=== PATIENT | male | born 1965 | race Caucasian/White ===

== ENCOUNTER 2021-10-05 01:47 | Day surgery (SDC) | payer OTHER, SELFPAY ==
[2021-09-25 09:38] VITALS: BMI 26.6
[2021-10-05 12:49] VITALS: BP 116/81; PULSE 89; RESP 16; TEMP 36.5; O2SAT 97
[2021-10-05] MEDS: LACTATED RINGERS 1,000 ML 150 ML IV CONT (13:00)
--- NOTE | 2021-10-05 13:02 | WPDANESEPPF ---
Anes - Initial Pre Proc Eval Procedure: Operation Date: 10/05/21 13:30 Proposed Procedures p Screening Colonoscopy - Jaspal Lancaster MD Date/Time: 10/05/21 13:02 Surgeon: Jaspal Lancaster MD Pre Op Diagnosis: hx of colon polyps, neoplasm screening Patient Data Age: 56 Gender: M Height: 1.8 m Weight: 87.4 kg Last Vital Signs Temp 36.5 C 10/05/21 12:49 Pulse 89 10/05/21 12:49 Resp 16 10/05/21 12:49 BP 116/81 10/05/21 12:49 Pulse Ox 97 10/05/21 12:49 O2 Del Method Room Air 10/05/21 12:49 Allergies Allergy/AdvReac Type Severity Reaction Status Date / Time KARL --USED AT DENTIST Allergy Severe PROLONGED Uncoded 10/05/21 12:47 FACIAL PARALYSIS, DROOPING, ETC PET ALLERGENS--CAT, DOG Allergy Mild RESP Uncoded 10/05/21 12:47 DISTRESSS TYLENOL COLD MED--??SPECIFIC Allergy Mild HIVES, RASH Uncoded 10/05/21 12:47 DRUG Home Medications Medication Instructions Recorded Confirmed Type aspirin 325 mg tablet 325 mg PO DAILY 08/06/19 10/05/21 History cetirizine 10 mg tablet (Zyrtec) 10 mg PO DAILY 08/06/19 10/05/21 History nihbbnuz-its-qmzdc acid 300 1 tablet PO DAILY 06/21/20 10/05/21 History mcg-lycopene 600 mcg-lutein 300 mcg tablet (Men 50 Plus Multivitamin) finasteride 5 mg tablet See Rx Instructions .Route 11/30/20 10/05/21 Rx .COMPLEX #90 tabs ascorbate calcium (vitamin C) 500 500 mg PO DAILY 12/13/20 10/05/21 History mg tablet Patient hx anesthesia problems: none Family hx anesthesia problems: none Results Review: All pre-operative results and documents have been reviewed as part of the pre-operative evaluation. [facility] Past Medical History Medical History (Updated 10/05/21 @ 13:14 by Jaspal Lancaster MD) Hypertension Surgical History Surgical History H/O colonoscopy (~04/2018) H/O hernia repair Family History Family History Mother Hypertension Diabetes mellitus Social History Social History Smoking status: Never smoker Alcohol intake: current Alcohol use details: rarely Substance use: never Living arrangements: with family Spiritual care concerns: No Anes - Eval Final PreProcedure Day of Procedure 10/05/21 13:02 Patient weight: overweight Heart: regular rate and rhythm Lungs: clear to auscultation Airway: Mallampati scale class II Neurological: alert and oriented Last oral intake: >/= 8 hours ASA classification: II Emergent: no Anesthetic plan: proceed Anesthesia type and monitoring: general GIVS and standard monitoring Results Review: All pre-operative results and documents have been reviewed as part of the pre-operative evaluation. Informed Consent: The patient's anesthetic plan and its attendant risks and benefits were discussed with the patient/family/POA. Questions were solicited and answers provided to the satisfaction of the patient/family/POA.
--- NOTE | 2021-10-05 13:12 | PM.IMHP ---
H&P: HPI History of Present Illness Date/Time: 10/05/21 13:12 Chief Complaint: History of colon polyps. Narrative: This is a 56-year-old white male patient that comes for follow-up colonoscopy. Patient has a prior history of colon polyps 3-4 years ago. Patient's current weight appetite bowel movements are normal. He denies abdominal pain. Patient has had no bleeding. He presents for follow-up neoplasia screening. Review of Systems Review of Systems: Review of systems noncontributory. [facility] Past Medical History Medical History (Updated 10/05/21 @ 13:14 by Jaspal Lancaster MD) Hypertension Surgical History Surgical History H/O colonoscopy (~04/2018) H/O hernia repair Family History Family History Mother Hypertension Diabetes mellitus Social History Social History Smoking status: Never smoker Alcohol intake: current Alcohol use details: rarely Substance use: never Living arrangements: with family Spiritual care concerns: No Meds Home Medications and Allergies Home Medications Medication Instructions Recorded Confirmed Type aspirin 325 mg tablet 325 mg PO DAILY 08/06/19 10/05/21 History cetirizine 10 mg tablet (Zyrtec) 10 mg PO DAILY 08/06/19 10/05/21 History swocwyzb-aiv-pdbpc acid 300 1 tablet PO DAILY 06/21/20 10/05/21 History mcg-lycopene 600 mcg-lutein 300 mcg tablet (Men 50 Plus Multivitamin) finasteride 5 mg tablet See Rx Instructions .Route 11/30/20 10/05/21 Rx .COMPLEX #90 tabs ascorbate calcium (vitamin C) 500 500 mg PO DAILY 12/13/20 10/05/21 History mg tablet sodium sul 1.479 gram-potas ch See Rx Instructions PO PER PKG DIR 09/17/21 10/05/21 Rx 0.188 gram-magnes sul 0.225 gram #24 tabs tablet (Sutab) Allergies Allergy/AdvReac Type Severity Reaction Status Date / Time KARL --USED AT DENTIST Allergy Severe PROLONGED Uncoded 10/05/21 12:47 FACIAL PARALYSIS, DROOPING, ETC PET ALLERGENS--CAT, DOG Allergy Mild RESP Uncoded 10/05/21 12:47 DISTRESSS TYLENOL COLD MED--??SPECIFIC Allergy Mild HIVES, RASH Uncoded 10/05/21 12:47 DRUG Vital Signs Vital Signs - 24 hr 10/05/21 12:49 Temperature 97.7 F Pulse Rate 89 Respiratory Rate 16 Blood Pressure 116/81 Pulse Oximetry 97 Oxygen Delivery Room Air Exam Narrative: Physical exam reveals patient to be alert. Vital signs stable. HEENT exam is unremarkable. Patient is anicteric. Lungs are clear to auscultation and percussion. Heart is without murmur or extra sounds. Abdominal exam bowel sounds are present soft nontender with no hepatosplenomegaly. Digital external rectal exam is normal. Assessment and Plan Assessment and plan (1) History of colon polyps: Code(s): Z86.010 - Personal history of colonic polyps Status: Acute Assessment and Plan: Patient has a prior history of benign colon polyps. Plan is for surveillance colonoscopy today. Continue follow-up at 5 year intervals is advised. Further recommendations may be given after endoscopy.
[2021-10-05 13:52] VITALS: BP 100/71; PULSE 78; RESP 24; O2SAT 95
[2021-10-05 14:02] VITALS: BP 116/81; PULSE 79; RESP 20; O2SAT 96
[2021-10-05 14:12] VITALS: BP 109/83; PULSE 80; RESP 18; O2SAT 98
== END 2021-10-05 14:23 | disposition home or self-care (01) ==
PROVIDERS: PCP Family Medicine; Visit Provider Internal Medicine Gastroenterology
PROC: 0DJD8ZZ Inspection of Lower Intestinal Tract, Via Natural or Artificial Opening Endoscopic (ICD-10-PCS; CPT 45378; principal; 2021-10-05 13:30)
DX: Z12.11 Encounter for screening for malignant neoplasm of colon (principal); Z86.010 Personal history of colon polyps; K64.8 Other hemorrhoids; I10 Essential (primary) hypertension; Z79.82 Long term (current) use of aspirin
CPT/HCPCS: 45378; J2704; J7120

== ENCOUNTER → 2022-07-05 10:36 | Outpatient (CLI) | payer OTHER, SELFPAY ==
--- NOTE | ~2022-07-05 | XR_ITS ---
Left Shoulder Technique: AP and axillary views were obtained. Clinical History: Pain Findings: No fracture or dislocation is seen. Osseous alignment is anatomic. The glenohumeral and acr omioclavicular joint spaces are preserved. Soft tissues are unremarkable. Impression: Unremarkable left shoulder radiographs. Reviewed, dictated and finalized at [facility]. Impression: Unremarkable left shoulder radiographs.
== END ==
PROVIDERS: PCP Emergency Medicine; Visit Provider Emergency Medicine
DX: M25.512 Pain in left shoulder (principal)
CPT/HCPCS: 73030

== ENCOUNTER 2022-09-20 08:00 | Outpatient (RCR) | payer OTHER, SELFPAY ==
[2022-07-19 08:02] VITALS: BP_SYST 95
--- NOTE | 2022-07-19 14:04 | PTOPEVAL1 ---
Assessment and note entered by Wily Renteria, PT, DPT Evaluation Information Assessment Status Evaluation Diagnosis L shoulder pain Onset 2 months Subjective Information Pt states he is having L shoulder pain, he had a pain similar to this a few years ago, last time it went away on its own. X-Rays are negative for arthritis. Pt states his shoulder is more painful this time than last time, he states his ROM is really limited and he gets the pain anytime he reaches for things. He states with his arm resting by his side he does not have much pain but when he reaches his arm he will get a sharp pain that last for about 20-30s. Reported Pain Level Pain Score 1: Self Report Assessment PT Clinical Summary Renan presents to therapy today for his initial evaluation with a diagnosis of L shoulder pain. Today he demonstrates decreased active and passive ROM on the L shoulder that is nearly equal, indicating adhesive capsulitis. Today he demonstrates active shoulder flexion to 108 deg and abduction to 65 deg, passive flexion to 116deg and abduction to 95deg. There is a hard end feel at the end ROM. It was recommended that he follow up with ortho as well as his PCP to see if there is an anti inflammatory that could help with his prognosis. Skilled physical therapy services are indicated to improve ROM, manage pain, and to improve functional mobility. Plan of Care Interventions Electrical Stimulation,Hot Pack/Cold Pack,Manual Therapy,Neuro Re-education,Patient/Caregiver Educati,Therapeutic Activities,Therapeutic Exercise PT Services Indicated Yes Treatment Frequency and 2x/wk for 4 wks Duration These treatments will address the objective and functional deficits as defined above. The patient will be advanced safely and appropriately in order for the patient to progress towards his/her prior level of function. Additional exercises will be introduced and as well as a comprehensive home exercise program upon discharge, if needed, ?to ensure carryover of functional gains achieved in the clinic. This treatment plan has been reviewed and agreement upon by the patient.
[2022-08-21 08:00] VITALS: BP_SYST 115
--- NOTE | 2022-08-21 08:49 | PTOPPROG ---
Assessment and note entered by Wily Renteria, PT, DPT Evaluation Information Assessment Status Progress Diagnosis L shoulder pain Onset 2 months Subjective Information Pt states he feels like overall therapy is working . He states he feels constant improvement but that it is just slow. He reports he is unsure if he will need another intervention or not. He reports no large limitations, he just has to be cautions of moving into certain positions. He reports less positional aggravation, now happening 1-2x/wk vs 1-2x/day. Pt reports 70-75% improvement in overall symptoms. Assessment PT Clinical Summary Renan presents to therapy today for his progress report following 8 visits of skilled therapy to treat his L shoulder pain. Today he has increased his active shoulder flexion from 108 deg to 140 deg, and abduction from 65 deg to 104 deg. He has improved his active and passive ROM significant but is still lacking motion, including rotation from his uninvolved side. He reports good compliance with his HEP and is progressing well towards his goals. Continuation of skilled therapy services are indicated to continue to progress ROM, mobility, and to return to PLOF. Plan of Care Interventions Electrical Stimulation,Hot Pack/Cold Pack,Manual Therapy,Neuro Re-education,Patient/Caregiver Educati,Therapeutic Activities,Therapeutic Exercise PT Services Indicated Yes Treatment Frequency and 1-2x/wk for 4 wks Duration These treatments will address the objective and functional deficits as defined above. The patient will be advanced safely and appropriately in order for the patient to progress towards his/her prior level of function. Additional exercises will be introduced and as well as a comprehensive home exercise program upon discharge, if needed, ?to ensure carryover of functional gains achieved in the clinic. This treatment plan has been reviewed and agreement upon by the patient.
[2022-09-20 08:02] VITALS: BP_SYST 130
--- NOTE | 2022-09-20 08:55 | PTOPPROG ---
Assessment and note entered by Wily Renteria, PT, DPT Evaluation Information Assessment Status Progress Diagnosis L shoulder pain Onset 2 months Subjective Information Pt states he feels like he continues to make slow improvement with therapy. He states his function has improved enough to where at most times he does not notice him limitations. Pt reports an 85% return to PLOF. Assessment PT Clinical Summary Renan presents to therapy today for his progress report following 12 visits of skilled therapy to treat his L shoulder pain. Today he has demonstrate active shoulder flexion to 140 deg, and abduction to 120 deg. He has improved his active and passive ROM but is still lacking motion , especially int rot rotation from his uninvolved side. Continuation of skilled therapy services are indicated to continue to progress ROM, mobility, and to return to PLOF. Plan of Care Interventions Electrical Stimulation,Hot Pack/Cold Pack,Manual Therapy,Neuro Re-education,Patient/Caregiver Educati,Therapeutic Activities,Therapeutic Exercise PT Services Indicated Yes Treatment Frequency and in one month Duration These treatments will address the objective and functional deficits as defined above. The patient will be advanced safely and appropriately in order for the patient to progress towards his/her prior level of function. Additional exercises will be introduced and as well as a comprehensive home exercise program upon discharge, if needed, ?to ensure carryover of functional gains achieved in the clinic. This treatment plan has been reviewed and agreement upon by the patient.
--- NOTE | 2022-10-11 09:51 | PCPTNOTE ---
This treatment is being continued on visit number [id number]. Please see documentation on both accounts to view progress. Completed interventions, outcomes, and problems have been marked as Inactive to facilitate the copying of the Care plan routine for recurring accounts.
== END 2022-10-10 08:48 | disposition still patient (30) ==
LOC: ANHGOSHPT 08:00
PROVIDERS: PCP Emergency Medicine; Visit Provider Nurse Practitioner Family
DX: M25.512 Pain in left shoulder (principal)
CPT/HCPCS: 97110; 97112; 97140; 97161; 97530

== ENCOUNTER 2022-10-18 08:00 | Outpatient (RCR) | payer OTHER, SELFPAY ==
--- NOTE | 2022-10-11 09:50 | PCPTNOTE ---
The treatment documented on this account is a continuation of the treatment documented on visit number [id number]. Please see documentation on both accounts to view progress. The Plan of Care has been transitioned and updated within the new V#. I have addressed and agree with the discipline specific Problems, Interventions, and Goals for the current certification period. Completed interventions, outcomes, and problems have been marked as Inactive to facilitate the copying of the Care plan routine for recurring accounts.
--- NOTE | 2022-10-18 08:39 | PTOPDC ---
Assessment and note entered by Wily Renteria, PT, DPT Evaluation Information Assessment Status Discharge Diagnosis L shoulder pain Subjective Information Pt states his shoulder is good overall but he can at times still tell that he has some limitations. He states once in the last month reached for something and get a pretty sharp pain for the last for 15s. He states he is not really affected day to day. Reported Pain Level Pain Score 1: Self Report Assessment PT Clinical Summary Renan presents to therapy today for his progress report following 13 visits of skilled therapy to treat her L shoulder pain. Today he demonstrates shoulder strength that is grossly 5/5 and equal bilaterally. His active shoulder ROM measurements are within 10 degs of his uninvolved side. Functional internal rotation continues to be the most limited motion. He has met or progressed well towards all of his therapy goals and will be discharged from skilled services at this time. Plan of Care PT Services Indicated No
== END 2022-10-18 09:19 | disposition home or self-care (01) ==
LOC: ANHGOSHPT 08:00
PROVIDERS: PCP Emergency Medicine; Visit Provider Nurse Practitioner Family
DX: M25.512 Pain in left shoulder (principal)
CPT/HCPCS: 97110

== ENCOUNTER 2023-11-06 09:53 | Outpatient (CLI) | payer OTHER, SELFPAY ==
[2023-11-06 19:37] LABS: Basophils Absolute Auto 0.1 K/mm3 (0.0-0.1); Basophils Percent Auto 0.9 % (0.2-1.2); Eosinophils Absolute Auto 0.2 K/mm3 (0-0.3); Eosinophils Percent Auto 3.1 % (0-4.4); Hematocrit 49.2 % (42.0-52.0); Hemoglobin 16.6 g/dL (14.0-18.0); Immature Granulocyte Absolute 0.03 K/mm3 (0.00-0.031); Immature Granulocyte Percent A 0.4 % (0-0.5); Lymphocytes Absolute Auto 1.95 K/mm3 (0.9-3.2); Lymphocytes Percent Auto 28.5 % (18.3-44.2); Mean Corpuscular HGB Conc 33.7 g/dl (32-36); Mean Corpuscular Volume 91.8 fl (80-100); Mean Platelet Volume 10.6 fl (7.4-10.4); Monocytes Absolute Auto 0.6 K/mm3 (0.1-0.6); Monocytes Percent Auto 9.2 % (2.6-8.5); Neutrophils Percent Auto 57.9 % (45.5-73.1); Platelet Count Result 403 k/mm3 (150-375); Red Blood Count 5.36 M/mm3 (4.6-6.20); Red Cell Distribution Width 13.9 % (11.5-14.5); White Blood Count 6.8 K/mm3 (4.5-10.0)
[2023-11-06 19:45] LABS: Vitamin D 25 Hydroxy 46.1 ng/mL
[2023-11-06 19:52] LABS: Alanine Aminotransferase 63 U/L (6-50); Albumin Level 4.5 g/dL (3.5-5.1); Alkaline Phosphatase 54 U/L (38-126); Anion Gap 8 mmol/L (4-12); Aspartate Amino Transferase 60 U/L (17-59); Bilirubin,Total 0.8 mg/dL (0.2-1.3); Blood Urea Nitrogen 15 mg/dL (9-20); Calcium 8.9 mg/dL (8.4-10.2); Carbon Dioxide 31 mmol/L (22-30); Chloride 99 mmol/L (98-107); Cholesterol 151 mg/dL (0-200); Estimated Glomerular Filt Rate > 60; Glucose 90 mg/dL (65-110); HDL Direct 29 mg/dL; Potassium 4.2 mmol/L (3.4-5.0); Sodium 138 mmol/L (137-145); Triglycerides 195 mg/dL (<150)
[2023-11-06 20:05] LABS: LDL Cholesterol Direct 88 mg/dL
[2023-11-06 20:19] LABS: Prostate Specific Antigen 0.3 ng/mL (< OR = 4.0)
== END 2023-11-06 09:54 | disposition home or self-care (01) ==
LOC: ANHGOSHLAB 09:54
PROVIDERS: PCP Emergency Medicine; Visit Provider Nurse Practitioner Family
DX: E78.1 Pure hyperglyceridemia (principal); I10 Essential (primary) hypertension; R53.83 Other fatigue; Z12.5 Encounter for screening for malignant neoplasm of prostate; E53.8 Deficiency of other specified B group vitamins; E55.9 Vitamin D deficiency, unspecified
CPT/HCPCS: 36415; 80053; 80061; 82306; 82607; 84153; 84443; 85025; G0103

== ENCOUNTER 2024-06-11 08:14 | Outpatient (CLI) | payer OTHER, SELFPAY ==
[2024-06-11 11:31] LABS: Alanine Aminotransferase 46 U/L (6-50); Albumin Level 4.3 g/dL (3.5-5.1); Alkaline Phosphatase 60 U/L (38-126); Aspartate Amino Transferase 71 U/L (17-59); Bilirubin,Total 0.8 mg/dL (0.2-1.3)
== END 2024-06-11 08:15 | disposition home or self-care (01) ==
LOC: ANHGOSHLAB 08:14
PROVIDERS: PCP Nurse Practitioner Family; Visit Provider Nurse Practitioner Family
DX: R74.8 Abnormal levels of other serum enzymes (principal)
CPT/HCPCS: 36415; 80076